=== PATIENT | male | born 1945 | race Two or more races ===

== ENCOUNTER → 2021-12-13 | Emergency (ER) | payer OTHER ==
[~2021-12-13] VITALS: Ht 170.2 cm; Wt 83.9 kg
[~2021-12-13] MED LIST: GLUMETZA500 MG; LISINOPRIL; PANADOL; SYNTHROID125 MCG
== END | disposition left against medical advice (07) ==
LOC: ER 05:13
DX: S30.0XXA Contusion of lower back and pelvis, initial encounter (principal); W22.8XXA Striking against or struck by other objects, initial encounter; Y93.89 Activity, other specified; Y92.89 Other specified places as the place of occurrence of the external cause; Y99.8 Other external cause status

== ENCOUNTER 2021-12-31 12:19 | Emergency (ER) | payer OTHER ==
[~2021-12-31] VITALS: Ht 170.2 cm; Wt 83.9 kg
[2021-12-31] MEDS ORDERED: HORIZANT300 MG (12:33)
[2021-12-31] MEDS ORDERED: ZESTRIL2.5 MG (12:33)
== END 2021-12-31 16:28 | disposition home or self-care (01) ==
LOC: ER 12:19
DX: M54.2 Cervicalgia (principal); M54.9 Dorsalgia, unspecified; E11.9 Type 2 diabetes mellitus without complications; Z79.84 Long term (current) use of oral hypoglycemic drugs; Z88.0 Allergy status to penicillin